=== PATIENT | female | born 1985 | race Two or more races ===

== ENCOUNTER 2018-03-12 17:03 | Inpatient (IN) | payer OTHER ==
[~2018-03-12] VITALS: Ht 160 cm; Wt 2.3 kg
[2018-03-12] MEDS ORDERED: PRENATAL TABLE1 EAC1 PO (18:31)
== END 2018-03-15 11:35 | disposition home or self-care (01) | DRG 786 ==
LOC: LDR 17:03 → SURG-SUITE 21:09
PROVIDERS: ADMIT Obstetrics & Gynecology
PROC: 4A1HXCZ Monitoring of Products of Conception, Cardiac Rate, External Approach (ICD-10-PCS; 2018-03-12)
PROC: 4A033R1 Measurement of Arterial Saturation, Peripheral, Percutaneous Approach (ICD-10-PCS; 2018-03-12)
PROC: 10D00Z1 Extraction of Products of Conception, Low, Open Approach (ICD-10-PCS; principal; 2018-03-12 17:00)
DX: O14.13 Severe pre-eclampsia, third trimester (principal); O60.14X0 Preterm labor third trimester with preterm delivery third trimester, not applicable or unspecified; Z3A.35 35 weeks gestation of pregnancy; Z37.0 Single live birth

== ENCOUNTER 2020-11-29 01:55 | Outpatient (CLI) | payer OTHER ==
[~2020-11-29 01:55] MED LIST: PRENATAL TABLE1 EAC1 PO
== END 2020-11-29 13:26 | disposition home or self-care (01) ==
LOC: OBS/DEL 01:55
PROVIDERS: ATTEND Obstetrics & Gynecology Maternal & Fetal Medicine
DX: O60.03 Preterm labor without delivery, third trimester (principal); Z3A.32 32 weeks gestation of pregnancy

== ENCOUNTER 2020-12-16 23:43 | Outpatient (CLI) | payer OTHER ==
[2020-12-17] MEDS ORDERED: VISTARIL25 MG PO (00:37)
[2020-12-17] MEDS ORDERED: LABETALOL HCL200 MG PO (00:37)
[2020-12-17] MEDS ORDERED: ASA81 MG PO (00:38)
== END 2020-12-17 08:19 | disposition home or self-care (01) ==
LOC: OBS/DEL 23:43
PROVIDERS: ATTEND Obstetrics & Gynecology
DX: O16.3 Unspecified maternal hypertension, third trimester (principal); Z3A.34 34 weeks gestation of pregnancy

== ENCOUNTER 2020-12-18 13:26 | Outpatient (CLI) | payer OTHER ==
[~2020-12-18 13:26] MED LIST changes: +ASA81 MG PO; +LABETALOL HCL200 MG PO; +VISTARIL25 MG PO
== END 2020-12-18 13:52 | disposition home or self-care (01) ==
LOC: NST 13:26
PROVIDERS: ATTEND Obstetrics & Gynecology Maternal & Fetal Medicine
DX: Z34.83 Encounter for supervision of other normal pregnancy, third trimester (principal)

== ENCOUNTER 2020-12-28 13:00 | Inpatient (IN) | payer OTHER ==
[~2020-12-28] VITALS: Ht 160 cm; Wt 3.2 kg
[~2020-12-28 13:00] MED LIST changes: +TRANDATE300 MG PO
[2021-01-02] MEDS ORDERED: LABETALOL HCL200 MG (16:34)
[2021-01-05] MEDS ORDERED: KETO10TA2 PO (09:03)
[2021-01-05] MEDS ORDERED: OXYC1TAB9 PO (09:03)
== END 2021-01-05 12:47 | disposition home or self-care (01) | DRG 788 ==
LOC: SURH → SURG-SUITE 01-02 10:38 → O/R 01-02 10:38 → OB/GYN 01-02 15:20 → SURG-SUITE 01-02 16:10
PROVIDERS: ADMIT Obstetrics & Gynecology Maternal & Fetal Medicine; ATTEND Obstetrics & Gynecology Maternal & Fetal Medicine
PROC: 4A1HXFZ Monitoring of Products of Conception, Cardiac Rhythm, External Approach (ICD-10-PCS; 2021-01-02)
PROC: 10D00Z1 Extraction of Products of Conception, Low, Open Approach (ICD-10-PCS; principal; 2021-01-02 13:00)
DX: O10.02 Pre-existing essential hypertension complicating childbirth (principal); O34.211 Maternal care for low transverse scar from previous cesarean delivery; Z37.0 Single live birth; Z3A.37 37 weeks gestation of pregnancy

== ENCOUNTER 2020-12-29 18:12 | Inpatient (IN) | payer OTHER ==
[~2020-12-29] VITALS: Ht 160 cm; Wt 81.2 kg
== END 2020-12-31 10:00 | disposition home or self-care (01) | DRG 833 ==
LOC: LDR 18:12
PROVIDERS: ADMIT Obstetrics & Gynecology Maternal & Fetal Medicine; ATTEND Obstetrics & Gynecology Maternal & Fetal Medicine
PROC: 4A1HXFZ Monitoring of Products of Conception, Cardiac Rhythm, External Approach (ICD-10-PCS; principal; 2020-12-29)
DX: O10.013 Pre-existing essential hypertension complicating pregnancy, third trimester (principal); Z3A.36 36 weeks gestation of pregnancy

== ENCOUNTER → 2021-01-09 | Emergency (ER) | payer OTHER ==
[~2021-01-09] VITALS: Ht 160 cm; Wt 73.5 kg
[~2021-01-09] MED LIST changes: +KETO10TA2 PO; +LABETALOL HCL200 MG; +OXYC1TAB9 PO
== END | disposition left against medical advice (07) ==
LOC: ER 19:22
DX: Z53.21 Procedure and treatment not carried out due to patient leaving prior to being seen by health care provider (principal)